=== PATIENT | male | born 1960 | race Caucasian/White ===

== ENCOUNTER → 2020-01-05 | Outpatient (CLI) | payer BC | LOC: YCFC.O 16:45 | PROVIDERS: ATTEND Family Medicine | DX: Z20.828 Contact with and (suspected) exposure to other viral communicable diseases (principal) ==

== ENCOUNTER → 2020-06-21 | Outpatient (CLI) | payer BC | LOC: YCFC.O 10:54 | PROVIDERS: ATTEND Family Medicine | DX: R07.9 Chest pain, unspecified (principal); Z13.220 Encounter for screening for lipoid disorders ==